=== PATIENT | female | born 1940 | race African-American/Black ===

== ENCOUNTER 2020-07-30 19:40 | Emergency (ER) | payer MEDICARE, OTHER ==
[~2020-07-30] VITALS: Ht 162.6 cm; Wt 75.0 kg
[2020-07-30 21:19] LABS: EOSINOPHILS % 2.8 % (0.0-5.0); HEMOGLOBIN. 13.6 g/dL (12.0-16.0); LYMPHOCYTES % 33.6 % (20.0-50.0); MEAN CORPUSCULAR HEMOGLOBIN 30.4 pg (28.0-32.0); MEAN CORPUSCULAR VOLUME 91.4 fL (81.0-99.0); MEAN PLATELET VOLUME 12.2 fl (7.4-10.4); MONOCYTES % 10.9 % (2.0-8.0); NEUTROPHILS % 51.7 % (40.0-76.0); PLATELET 144 x1000/uL (130-400); RED BLOOD CELL COUNT 4.49 mill/uL (4.2-5.4); RED CELL DISTRIBUTION WIDTH 14.3 % (11.6-14.6)
[2020-07-30 21:26] LABS: CHLORIDE 107 mEq/L (98-107)
[2020-07-30] MEDS ORDERED: LORAZEPAM 0.5MG TABLET PO ONE (21:30)
[2020-07-30 22:53] VITALS: BP 155/89
== END 2020-07-30 22:54 | disposition home or self-care (01) ==
LOC: ER 19:40
DX: R00.2 Palpitations (principal); F43.0 Acute stress reaction; R03.0 Elevated blood-pressure reading, without diagnosis of hypertension; Z63.4 Disappearance and death of family member; E03.9 Hypothyroidism, unspecified
CPT/HCPCS: 36415; 71045; 80053; 84443; 84484; 85025; 93005; 99285